=== PATIENT | female | born 1965 | race Caucasian/White ===

== ENCOUNTER 2017-08-29 05:26 | Day surgery (SDC) | payer OTHER ==
[~2017-08-29] VITALS: Ht 162.6 cm; Wt 51.7 kg
--- NOTE | ~2017-08-29 | S ---
[facility] [address] [place] [address] SURGICAL PATH RPT PROCEDURE Name: NEERAJ BASILIO Room #: DEP [facility] M.R.#: [id number] Admission: 08/29/17 Date of : 67 Discharge: 08/29/17 Report #: [id number] Path Case #: [id number] PATHOLOGY REPORT DRAFT COLLECTION DATE: 08/29/2017 RECEIVED DATE: 08/29/2017 SPECIMEN(S) RECEIVED: Елена zuniga
[~2017-08-29 05:26] MED LIST: FLONASE 0.05%50 MCG NASAL
[2017-08-29 06:48] VITALS: BP 134/81
[2017-08-29 08:14] VITALS: BP 134/81
== END 2017-08-29 10:51 | disposition home or self-care (01) ==
LOC: OR 05:26 → TBA 05:29 → OR 10:51
DX: D17.1 Benign lipomatous neoplasm of skin and subcutaneous tissue of trunk (principal)
CPT/HCPCS: 50010; 50101; 50386; 50403; 54118; 56526